=== PATIENT | female | born 1965 | race Asian ===

== ENCOUNTER 2019-05-27 15:20 | Emergency (ER) | payer OTHER, SELFPAY ==
[2019-05-27] MEDS ORDERED: ADACEL/BOOSTRIX VACCINE (DIPHTH/PERTUSS/ACELL/TETANUS)0.5ML SYR (90715) IM ONE (15:45)
[2019-05-27] MEDS ORDERED: NS 1,000 ML IV ONE (15:45)
[2019-05-27 16:33] LABS: HEMATOCRIT 41.8 % (36.0-47.0); HEMOGLOBIN 13.9 g/dl (12.0-15.5); MEAN CORPUSCULAR HEMOGLOBIN 30.6 pg (27.0-33.0); MEAN CORPUSCULAR HGB CONC 33.3 g/dl (32.0-36.5); MEAN CORPUSCULAR VOLUME 92.1 fl (80.0-96.0); PLATELET COUNT, AUTOMATED 199 10^3/uL (150-450); RED BLOOD COUNT 4.54 10^6/uL (4.00-5.40); WHITE BLOOD COUNT 7.6 10^3/uL (4.0-10.0)
[2019-05-27] MEDS ORDERED: unknown BP med (16:36)
[2019-05-27 16:42] LABS: INR 0.98; PROTHROMBIN TIME 12.7 SECONDS (11.8-14.0)
[2019-05-27 17:01] LABS: BLOOD UREA NITROGEN 10 MG/DL (7-18); CALCIUM LEVEL 9.3 MG/DL (8.5-10.1); CARBON DIOXIDE LEVEL 32 MEQ/L (21-32); CHLORIDE LEVEL 107 MEQ/L (98-107); CREATININE FOR GFR 0.61 MG/DL (0.55-1.30); GLOMERULAR FILTRATION RATE > 60.0 (>51); GLUCOSE, FASTING 117 MG/DL (70-100); POTASSIUM SERUM 3.5 MEQ/L (3.5-5.1); SODIUM LEVEL 145 MEQ/L (136-145)
[2019-05-27] MEDS ORDERED: ISOVUE-370 76% 100ML VIAL (Q9967) As Ordered ONE (17:06)
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
[2019-05-27 18:38] VITALS: BP 168/97
== END 2019-05-27 18:40 | disposition home or self-care (01) ==
LOC: M ED 15:20
DX: S00.03XA Contusion of scalp, initial encounter (principal); S50.819A Abrasion of unspecified forearm, initial encounter; T76.11XA Adult physical abuse, suspected, initial encounter; Y92.511 Restaurant or cafe as the place of occurrence of the external cause; I10 Essential (primary) hypertension; Z79.899 Other long term (current) drug therapy
CPT/HCPCS: 70450; 71260; 74177; 80048; 85027; 85610; 86850; 86900; 86901; 90715; 99284; Q9967